=== PATIENT | female | born 1945 | race Caucasian/White ===

== ENCOUNTER → 2023-11-17 08:42 | Outpatient (REF) | payer OTHER, SELFPAY | LOC: HWWDC 08:42 | PROVIDERS: ATTENDING PHYSICIAN Obstetrics & Gynecology Gynecology; FAMILY PHYSICIAN Family Medicine | DX: Z12.31 Encounter for screening mammogram for malignant neoplasm of breast (principal) | CPT/HCPCS: 77063; 77067 ==

== ENCOUNTER → 2024-11-22 07:42 | Outpatient (REF) | payer OTHER, SELFPAY | LOC: HWWDC 07:42 | PROVIDERS: ATTENDING PHYSICIAN Obstetrics & Gynecology Gynecology; FAMILY PHYSICIAN Family Medicine | DX: Z12.31 Encounter for screening mammogram for malignant neoplasm of breast (principal) | CPT/HCPCS: 77063; 77067 ==

== ENCOUNTER → 2025-03-01 08:11 | Outpatient (REF) | payer OTHER, SELFPAY | LOC: HWRAD 08:11 | PROVIDERS: ATTENDING PHYSICIAN Surgery; FAMILY PHYSICIAN Family Medicine | DX: L02.01 Cutaneous abscess of face (principal) | CPT/HCPCS: 70486 ==